=== PATIENT | female | born 1955 ===

== ENCOUNTER 2018-06-07 14:18 | Emergency (ER) | payer OTHER ==
[2018-06-07 14:18] VITALS: BMI 46.3
--- NOTE | 2018-06-07 15:53 | C.PDOC ---
History Of Present Illness 63 year old female presents to the ED complaining of erythema and pain on the right side of the anterior abdominal wall. Patient denies any sick contacts or recent travels. Denies any fever, chills, shortness of breath, chest pain, tongue swelling, or any other symptoms. Time Seen by Provider: 06/07/18 14:51 Chief Complaint (Nursing): Abnormal Skin Integrity History Per: Patient History/Exam Limitations: no limitations Onset/Duration Of Symptoms: Days Current Symptoms Are (Timing): Still Present Location Of Injury: Right: Abdomen (erythematous spots ), Anterior: Abdomen Quality Of Symptoms: Painful Past Medical History Reviewed: Historical Data, Nursing Documentation, Vital Signs Vital Signs: Last Vital Signs Temp 98.2 F 06/07/18 14:21 Pulse 105 H 06/07/18 14:21 Resp 20 06/07/18 14:21 BP 126/87 06/07/18 14:21 Pulse Ox 97 06/07/18 14:21 - Medical History PMH: Arthritis, HTN, Osteoporosis, Sleep Apnea Surgical History: Denies: Pacemaker - [facility] Procedures CORONAR ARTERIOGR-2 CATH (05/18/14) LEFT HEART CARDIAC CATH (05/18/14) LT HEART ANGIOCARDIOGRAM (05/18/14) PHYSICAL THERAPY NEC (01/24/14) Family History: States: No Known Family Hx - Social History Hx Tobacco Use: No Hx Alcohol Use: No Hx Substance Use: No - Immunization History Hx Tetanus Toxoid Vaccination: No Hx Influenza Vaccination: Yes Hx Pneumococcal Vaccination: No Review Of Systems Except As Marked, All Systems Reviewed And Found Negative. Constitutional: Negative for: Fever, Chills ENT: Negative for: Mouth Swelling, Throat Swelling Respiratory: Negative for: Shortness of Breath Skin: Positive for: Other (multiple erythematous spots) Physical Exam - Physical Exam Appears: Non-toxic, No Acute Distress Skin: Other (large erythematous patch 6cm wide to anterior right abdominal wall with pustula in center, warm to touch, tender to palpation. (-) drainage (-) fluctuance (-) open sores ) Head: Normacephalic Eye(s): bilateral: Normal Inspection Nose: Normal Oral Mucosa: Moist Neck: Supple Chest: Symmetrical Cardiovascular: Rhythm Regular Respiratory: Normal Breath Sounds, No Decreased Breath Sounds, No Rales, No Rhonchi, No Wheezing Neurological/Psych: Oriented x3, Normal Speech Gait: Steady ED Course And Treatment O2 Sat by Pulse Oximetry: 97 (RA) Pulse Ox Interpretation: Normal Progress Note: Margins of erythematous patch traced with skin marker. Patient given Cleocin and instructed to return to the ED in 2 days for re-evaluation. Patient agrees with plan. Disposition - Disposition Disposition: HOME/ ROUTINE Disposition Time: 15:50 Condition: STABLE Additional Instructions: Follow up with PMD within 1-2 days. Return to ED if feel worse. Return to ED in 2 days for re-evaluation. Prescriptions: Clindamycin [Cleocin] 300 mg PO Q6 #28 cap Instructions: Cellulitis (Skin Infection), Adult (DC) Forms: [employer] ([place] Citizen) Print Language: BRUNEIAN - Clinical Impression Clinical Impression: Cellulitis - PA / TRANSPORT NURSE / Resident Statement MD/DO has reviewed & agrees with the documentation as recorded. - Scribe Statement The provider has reviewed the documentation as recorded by the Scribe Emperatriz Bridges All medical record entries made by the Scribe were at my direction and personally dictated by me. I have reviewed the chart and agree that the record accurately reflects my personal performance of the history, physical exam, medical decision making, and the department course for this patient. I have also personally directed, reviewed, and agree with the discharge instructions and disposition.
[2018-06-07 16:11] VITALS: BP 114/77; PULSE 88; RESP 18; TEMP 98
[2018-06-07 16:59] VITALS: O2SAT 97
== END 2018-06-07 16:13 | disposition home or self-care (01) ==
LOC: C.ER 14:18
DX: L03.311 Cellulitis of abdominal wall (principal); I10 Essential (primary) hypertension; M81.0 Age-related osteoporosis without current pathological fracture